=== PATIENT | male | born 1935 | race Caucasian/White ===

== ENCOUNTER 2020-07-30 07:07 | Inpatient (IN) | payer OTHER, MEDICARE ==
--- OUTSIDE RECORDS SUMMARY | 2020-07-30 07:11 | XMS REPORT | Clinical Summary ---
:1935 Author Organization [facility] Address [address] [place] [address] Care Team Providers Name Role Phone Angela Primary Care Provider Unavailable Allergies Active Allergy Reactions Severity Noted Date Comments Codeine Sulfate Nausea And Vomiting 11/03/2016 Rosuvastatin Other (See Comments) 03/04/2016 Muscle pain Medications Medication Sig Dispensed Refills Start Date End Date Status PITAVASTATIN CALCIUM Take 1 tablet by 0 Active (LIVALO ORAL) mouth 3 (three) times a week. multivitamin Take 1 tablet by 0 Active (MULTIVITAMIN) per mouth daily. tablet ascorbic acid (VITAMIN Take 1,000 mg by 0 Active C) 1000 MG tablet mouth daily. saw palmetto 1,000 mg Take by mouth. 0 Active Cap ramipril (ALTACE) 2.5 Take 2 tablets by 0 Active MG capsule mouth. aspirin 81 MG EC tablet Take 81 mg by 0 Active mouth daily. Active Problems Problem Noted Date Medial meniscus tear 04/26/2013 Social History Tobacco Use Types Packs/Day Years Used Date Former Smoker 1 3 Quit: 07/06/18 69 Smokeless Tobacco: Never Used Comments: quit late Alcohol Use Drinks/Week oz/Week Comments Yes wine or liquor-- 5 x week Sex Assigned at Date Recorded Not on file Last Filed Vital Signs Not on file Plan of Treatment Not on file Implants Implanted Type Area Meter Repairer Device Shelf Model / Identifier Expiration Serial / Date Lot Imp Prolaryn Plus 1cc Inj [id number] - [id number] Otorhinolaryngology Bilater JAYCEE 11/16/2017 [id number] / Implanted: Qty: 1 on 11/06/2016 by Lennie barr, Nirmal Valenzuela MD at [facility] al: [employer] / Vocal [id number] Cord Results Not on fileafter 07/30/2019 Insurance Payer Benefit Plan / Subscriber ID Effective Dates Phone Addre ss Type Group MEDICARE MEDICARE A B [id number] 2002-Present Medicare [facility] [id number] 2016-Present Medigap SUPPLEMENT/[employer] Advance Directives For more information, please contact: [phone] Code Status Date Activated Date Inactivated Comments Code ONE 04/26/2013 8:44 AM 04/26/2013 3:37 PM All poss ible means of support including;cardia c massage, mechanical venti lation, and defibrillation w ill be used to support life.
--- OUTSIDE RECORDS SUMMARY | 2020-07-30 07:11 | XMS REPORT | Clinical Summary ---
:1935 Author Organization [facility] Address [address] [place] [address] Care Team Providers Name Role Phone Moy Miller MD Primary Care Provider Allergies Active Allergy Reactions Severity Noted Date Comments Codeine Nausea And Vomiting 05/25/2013 Rosuvastatin Other (See Comments) 03/04/2016 Muscle pain Medications Medication Sig Dispensed Refills Start Date End Date Status dietary supplement Take by mouth. Vitamin D 0 Active capsule Vitamin C Vitamin A Magnesium Selenium Saw [place] Laurie capsule ascorbic acid, vitamin Take 1 tablet by 0 Active C, (VITAMIN C) 500 MG mouth daily. tablet RAMIPRIL ORAL Take 2 tablets by 0 Active mouth. SAW PALMETTO ORAL Take 2 capsules by 0 Active mouth. ADVAIR DISKUS 100-50 USE 1 INHALATION 5 10/28/2017 Active mcg/dose DISKUS PO ONCE D naproxen (NAPROSYN) TK 1 T PO BID 0 10/09/2017 Active 500 MG tablet WITH FOOD ramipril (ALTACE) 10 Take 10 mg by 3 10/12/2017 Active MG capsule mouth nightly. vitamin A-vit C-vit Take by mouth 2 0 Active E-zinc-Cu tablet (two) times a day. acetaminophen Take 1,000 mg by 0 Active (TYLENOL) 500 MG mouth as needed tablet for mild pain. vitamin A 01126 UNIT Take 10,000 Units 0 Active capsule by mouth daily. NUTRITIONAL Take by mouth. Vit 0 Active SUPPLEMENTS ORAL A, Vit B complex, zinc, multi vit, pregagan - to stop 12/18/17 bimatoprost (LUMIGAN) 1 drop 2 (two) 0 Active 0.01 % ophthalmic times a day. drops pitavastatin calcium Take 2 mg by mouth 0 Active (LIVALO) 1 mg tablet nightly. valganciclovir HCl Take 0.5 tablets 0 Active (VALCYTE ORAL) by mouth 2 (two) times a day. UNABLE TO FIND Med Name: camigan 0 Active eye drops testosterone cypionate Inject into the 0 Active (DEPOTESTOTERONE shoulder, thigh, CYPIONATE) 200 mg/mL or buttocks every injection 7 days. loratadine-pseudoepHED Take 1 tablet by 0 Active rine (CLARITIN-D mouth daily. 24-hour) 10-240 mg per 24 hr tablet UNABLE TO FIND Med Name: steroid, 0 Active patient to check and confirm on day of surgery Active Problems Problem Noted Date Spinal stenosis, lumbar region, with neurogenic claudi cation 09/24/2018 Lumbar stenosis with neurogenic claudication 8 Closed fracture of pelvis 12/11/2016 Pain of right hip joint 12/11/2016 Pneumonia of left upper lobe due to infectious organis m 04/19/2016 Encounters Date Type Specialty Care Team Description 04/26/2020 Telephone Sleep Medicine Liza Hanson 04/23/2020 Telephone Sleep Medicine Liza Hanson 04/16/2020 Telephone Sleep Medicine Liza Hanson 04/06/2020 Telephone Sleep Medicine Liza Hanson 03/16/2020 Travel 03/16/2020 Transcribe Orders Sleep Medicine Lizz Ponce Obstr uctive sleep apnea Liza (adult) ([facility]) (Primary Dx) after 07/30/2019 Surgical History Surgery Date Site/Laterality Comments KNEE SURGERY Right ROTATOR CUFF REPAIR Right HIP SURGERY 12/04/2016 - 01/02/2017 SHOULDER SURGERY KNEE ARTHROSCOPY COLON SURGERY 07/06/2004 - had chemo and XR T 07/05/2005 FUSION, SPINE, LUMBAR, 12/25/2017 Spine Lumbar/N/A Procedur e: DECOMPRESSION POSTERIOR APPROACH L3-5, FUSION L4-5; Surgeon: Cole Choi MD; Loc ation: [facility] OR; Serv ice: Orthopedics; La terality: N/A; Medical devices from this surgery are in t he Implants section . LARYNGOSCOPY, SUSPENSION 07/06/2016 - Augment ation laryngoplasty 07/05/2017 COLON SURGERY due to CA - 2004 HIP ARTHROPLASTY Right 2016 LAMINECTOMY, LUMBAR 09/24/2018 Spine Lumbar/N/A Procedure: DECOMPRESSION, L2-L3 AND L5-S1; Surgeon: Cole Choi MD; Location: [facility]; Service: Orthope dics; Laterality: N/A; Medical History Medical History Date Comments Hypertension Acid reflux Arthritis Fractures Hyperlipidemia Hx of cold sores on face, taking med BID Post-nasal drip Fall 12/2016 - fractured h ip - sciatica pain since in right leg, using cane Sleep apnea, obstructive CPAP History of EKG 11/03/2017 had SOB and racing h eart - MD ruled side effect of "too much mucinex" and the result was n ormal Glaucoma Cancer (HCC) 2004 colon - had chemo an d XRT [place] (hard of hearing) no hearing aids Wears glasses Macular degeneration SOB (shortness of breath) on exertion wi th 3 flights of stairs - MD has evaluated Anesthesia NHAP/NFHAP - has sle ep apnea - does not regularly use CP AP, secure caps, patient denies histo ry of chestpain, [place], stroke; Hypercholesteremia Use of cane as ambulatory aid Exercises 3 to 4 times per week lifts we ights 4-5x week x 1 hour, occasional cardio; u nable to climb 2 flights of stairs du e to SOB of breath on exertion a nd hip Asthma Family History Medical History Relation Name Comments Cancer Mother Pollye Relation Name Status Comments Mother Pollye Social History Tobacco Use Types Packs/Day Years Used Date Former Smoker Cigarettes 1 5 Quit: 1979 Smokeless Tobacco: Never Used Alcohol Use Drinks/Week oz/Week Comments Yes 10 Standard drinks or equivalent 10.0 Sex Assigned at Date Recorded Not on file Job Start Date Occupation Industry Not on file Not on file Not on file Last Filed Vital Signs Not on file Plan of Treatment Health Maintenance Due Date Last Done Comments COVID-19 VACCINE (1 of 2) 1951 SHINGLES VACCINES (#1) 1984 65+ PNEUMOCOCCAL VACCINE (1 of 1 - PPSV23) 10/25/1999 INFLUENZA VACCINE 02/04/2020 Implants Implanted Type Area Manager Leadership Development Device Shelf Model / Identifier Expiration Serial / Lot Date Nufix 5.0 Mm Dowel - [id number] - [id number] Spinal Bilateral 07/10/2022 [id number] / Implanted: Qty: 1 on 12/25/2017 by Cole Choi MD at [facility] Implants : Spine [id number] / Lumbar [id number] Nufix 5.0 Mm Dowel - [id number] Spinal Bilateral 07/10/2022 [id number] / Implanted: Qty: 1 on 12/25/2017 by Cole Choi MD at [facility] Implants : Spine / Lumbar [id number] Results Not on fileafter 07/30/2019 Insurance Payer Benefit Plan / Subscriber ID Effective Dates Phone Addre ss Type Group MEDICARE MEDICARE PART A [id number] 2002-Present [facility] [place] [facility] AND B AARP AARP SUPPLEMENT [id number] 2004-[place] [employer] t Advance Directives For more information, please contact: [phone] Type Date Recorded Patient Wood Shop Teacher Explanati on Advance Directives, Living Will 07/22/2018 8:59 AM and Medical Power of Utility Service Worker
--- OUTSIDE RECORDS SUMMARY | 2020-07-30 07:11 | XMS REPORT | Continuity of Care Document ---
:1935 Author Organization [employer] Care Team Providers Name Role Phone [employer] Unavailable Un available Problems Problem Status Onset Classification Date Comments Sourc e Date Reported Avascular Active 09/08/2013 [facility] Aseptic Necrosis Active 09/08/2013 [facility] Femoral Condyle Localized Primary Active 09/08/2013 [facility] The Knee Joint Pain, Active 09/08/2013 [facility] Localized In [facility] Knee Medications Medication Details Route Status Patient Ordering Order Source Instructions Provider Date Multiple (Active) Active [facility] Vitamins [facility] Tablet Vitamin C (Active) Active [facility] CHEW [facility] Livalo TABS (Active) Active [facility] Meloxicam 7.5 (Active) Active [facility] MG [facility] Tablet Allergies, Adverse Reactions, Alerts Substance Category Reaction Severity Reaction Status Date Comments S ource type Reported Codeine drug drug Active [facility] Derivatives allergy allergy Phys icians Immunizations No Data Provided for This Section Results No Data Provided for This Section Pathology Reports No Data Provided for This Section Diagnostic Reports No Data Provided for This Section Consultation Notes No Data Provided for This Section Discharge Summaries No Data Provided for This Section History and Physicals No Data Provided for This Section Vital Signs No Data Provided for This Section Encounters Location Location Encounter Encounter Reason Attending ADM [place] Stat Source Details Type Number For Provider Date Date Visit AUDIT [id number] 06/14 /2012 [facility] AUDIT [id number] 07/20 /2013 [facility] RAMESH, [id number] 07/26 07/20 [place] Provider: LACY Wilder , Status: Pen, Time: 2:00 PM DOMINGA, [id number] 08/30 07/20 [place] Provider: [facility] LIBIA Gonzales, Status: Pen, Time: 8:00 AM AUDIT [id number] 09/08 /2013 [facility] ELIEZER, [id number] 09/13 09/08 [place] Provider: AFBIANA Preston, Status: Pen, Time: 1:00 PM Procedures No Data Provided for This Section Assessment and Plan No Data Provided for This Section Plan of Care Plan of Care Date Source [O] Xray KNEE COMPLETE 4 OR MORE 09/08/2013 [facility] VIEWS 07/20/2013 RoutinePhysical Therapy 09/08/2013 Routine [O] Xray KNEE COMPLETE 4 OR MORE 07/20/2013 [facility] VIEWS 07/20/2013 Routine Social History Social History Date Source Never A Smoker 09/08/2013 [facility] (Active) Family History No Data Provided for This Section Advance Directives Order Name Results Value Date Source Advance Directives Advance Directives No Advance 09/08/2013 [facility] Directives available. Advance Directives Advance Directives No Advance 07/20/2013 [facility] Directives available. Advance Directives Advance Directives No Advance 06/14/2013 [facility] Directives available. Functional Status No Data Provided for This Section
--- OUTSIDE RECORDS SUMMARY | 2020-07-30 07:12 | XMS REPORT | Continuity of Care Document ---
:1935 Author Organization [facility] t Address [address] [place] [address] Care Team Providers Name Role Phone Marcos MILLS Primary Care Physician Unavailable Lizz Ponce Attending Clinician Unavailable OSWALDO Attending Clinician Unavailable Marcos MILLS Attending Clinician Unavailable ADALGISA Attending Clinician Unavailable SHAKILA SUAREZ Attending Clinician Unavailable ADALGISA Admitting Clinician Unavailable Payers Payer Name Policy Policy Number Effective Expiration Source Type Date Date MEDICAREMEDICARE PART [id number] 2002 Jose Carlos Shell AND 00:00:00 Rastafari [id number] 2002[place] AARPAARP [id number] 2004 [place] [id number] 00:00:00 Met rivero 2003-[facility] MEDICARE PART A AND B [id number] 2002 00:00:00 AARP-SECONDARY ONLY [id number] 2004 00:00:00 Problems Condition Condition Condition Status Onset Resolution Last Treating Co mments Source Name Details Category Date Date Treatment Clinician Date Spinal Spinal Disease Active [place] stenosis, stenosis, 3-22 Meth belen lumbar lumbar 00:00: st region, region, 00 with with neurogenic neurogenic claudicati claudicati on on Lumbar Lumbar Disease Active [place] stenosis stenosis 6-22 Method i with with 00:00: st neurogenic neurogenic 00 claudicati claudicati on on Closed Closed Disease Active [place] fracture fracture 12-11 Method i of pelvis of pelvis 00:00: st 00 Pain of Pain of Disease Active [place] right hip right hip 12-11 Meth belen joint joint 00:00: st 00 Pneumonia Pneumonia Disease Active 2015-07 Reece ston of left of left 0-15 Methodi upper lobe upper lobe 00:00: st due to due to 00 infectious infectious organism organism Medial Medial Disease Active 2012-[address] [facility] meniscus [facility]iscus 0[facility] Center Other Other Problem Active Center fatigue fatigue for ENT Unsteadine Unsteadine Problem Active C enter ss on feet ss on feet fo r ENT Dysphonia Dysphonia Problem Active Aric ter for ENT GERD GERD Problem Active Center for ENT Edema of Edema of Problem Active Cente r larynx larynx for ENT Allergic Allergic Problem Active Cente r rhinitis rhinitis for EN T Postnasal Postnasal Problem Active Aric ter drip drip for ENT 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, vertigo, unspecifie unspecifie d ear d ear Obstructiv Obstructiv Problem Active C enter e sleep e sleep for ENT apnea apnea 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 ncy/atroph ncy/atroph y, other y, other Avascular Problem Active 2013-09-08 Me moria Necrosis 23:32:36 l [place] Avascular Necrosis Active [facility] Aseptic Problem Active 2013-09-08 Wilbert oscar Necrosis 23:32:36 l Of The Aseptic [place] 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 [facility] Localized Problem Active 2013-09-08 Me moria Primary 23:32:36 l Osteoarthr Trey n itis Of Localized The Knee Primary Osteoarthr itis Of The Knee Active [facility] Joint Problem Active 2013-09-08 Memor ia Pain, 23:32:36 l Localized Joint Trey n In The Pain, Knee Localized In The Knee Active 4 [facility] Allergies, Adverse Reactions, Alerts Allergy Allergy Status Severity Reaction(s) Onset Inactive Treating Comm ents Source Name Type Date Date Clinician Codeine Propensi Active Nausea And [facility] Sulf[facility] to Vomiting 11-03 [facility] - adverse 00:[facility]: Medical reaction 00 Center s Rosuvast Propensi Active Other (See Muscle [facility] atin ty to Comments) 8 pain [facility] - adverse 00:00: Medical reaction 00 Center s Rosuvast Propensi Active Other (See Muscle [place] atin ty to Comments) 8 pain Methodi adverse 00:00: st reaction 00 s to drug Codeine Propensi Active Nausea And 2012-07 Reece ston ty to Vomiting 1-20 Methodi adverse 00:00: st reaction 00 s to drug Codeine Codeine Active Memoria Derivati Derivati l ves ves [place] Family History Family Member Diagnosis Comments Start Date Stop Date Source Natural [facility] Social History Social Habit Start Date Stop Date Quantity Comments Source History of tobacco Current smoker Jose Carlos gaming Rastafari use Sex Assigned At [facility] ethodi Cigarettes smoked 2018-11-04 2018-11-04 [place] Rastafari current (pack per 00:00:00 00:00:00 day) - Reported Cigarette 2018-11-04 2018-11-04 [facility] ist pack-years 00:00:00 00:00:00 Tobacco use and 2018-11-04 2018-11-04 Never used [facility] ethodist exposure 00:00:00 00:00:00 Alcohol intake 2018-11-04 2018-11-04 Current drinker [place] Rastafari 00:00:00 00:00:00 of alcohol (finding) Social History 2013-09-08 2013-09-08 [facility] 23:32:36 23:32:36 Tobacco Comment 2013-04-26 2013-04-26 quit late [address] Alcohol Comment 2013-04-25 2013-04-[address] [facility] Judy kes - 00:00:00 00:00:00 liquor--5 x week [facility] Center Smoking Status Start Date Stop Date Source Former smoker 2018-11-04 00:00:00 2018-11-04 00:00:00 [place] Rastafari Medications Ordered Filled Start Stop Current Ordering Indication Dosage Frequency Signature Comments Components Source Medication Medication Date Date Medication? Clinician (SIG) Name Name dietary Yes Take by [place] supplement 3-23 mouth. Methodi capsule 09:38: Vitamin st 28 DVitamin CVitamin AMagnesium SeleniumSa w Palmet[place]Gi nger capsule ascorbic 2019-0 Yes 1{tbl} QD Take 1 [place] acid, 3-23 tablet by Methodi vitamin C, 09:38: mouth st (VITAMIN C) 28 daily. 500 MG tablet RAMIPRIL 2019-0 Yes 2{tbl} Take 2 [place] ORAL 3-23 tablets by Methodi 09:38: mouth. st 28 SAW 2019-0 Yes 2{capsu Take 2 Hendrix PALMETTO 3-23 le} capsules Methodi ORAL 09:38: by mouth. st 28 vitamin 2019-0 Yes Q.5D Take by [place] A-vit C-vit 3-23 mouth 2 Metho di E-zinc-Cu 09:38: (two) st tablet 28 times a day. acetaminoph Yes 1000mg Take 1,000 Hendrix en 3-23 mg by Methodi (TYLENOL) 09:38: mouth as st 500 MG 28 needed for tablet mild pain. vitamin A 2018- Yes [id number] [place] [id number] UNIT 3-23 10,000 Methodi capsule 09:38: Units by st 28 mouth daily. NUTRITIONAL 20190 Yes Take by Reece magaña SUPPLEMENTS 3-23 mouth. Vit Me thodi ORAL 09:38: A, Vit B st 28 complex, zinc, multi vit, pregagan - to stop 12/18/17 bimatoprost 2018-0 Yes 1[drp] Q.5D 1 drop 2 Hendrix (LUMIGAN) 3-23 (two) Methodi 0.01 % 09:38: times a st ophthalmic 28 day. drops pitavastati 2018-0 Yes 2mg QD Take 2 mg [place] calcium 3-23 by mouth Method i (LIVALO) 1 09:38: nightly. st mg tablet 28 valganciclo 2019-0 Yes .5{tbl} Q.5D Take 0.5 Hendrix vir HCl 3-23 tablets by Method i (VALCYTE 09:38: mouth 2 st ORAL) 28 (two) times a day. UNABLE TO 2019-0 Yes Med Name: Reece magaña FIND 3-23 camigan Methodi 09:38: eye drops st 28 testosteron 2019-0 Yes Q1W Inject [place] cypionate 3-23 into the Meth belen (DEPOTESTOT 09:38: shoulder, s t ERONE 28 thigh, or CYPIONATE) buttocks 200 mg/mL every 7 injection days. loratadine- Yes 1{tbl} QD Take 1 Ho mekhi pseudoepHED 3-23 tablet by Met jm melton 09:38: mouth st (CLARITIN-D 28 daily. 24-hour) 10-240 mg per 24 hr tablet UNABLE TO 2018- Yes Med Name: Reece magaña FIND 3-23 steroid, Methodi 09:38: patient to st 28 check and confirm on day of surgery Guaifenesin Guaifenesin 2019- No Nirmal 1 tablet [place] 12-15 0707 [place] as needed for E NT 00:00: 00:00 00 :00 ADVAIR Yes USE 1 [place] DISKUS 4-25 INHALATION Methodi 100-50 00:00: PO ONCE D st mcg/dose 00 DISKUS ramipril Yes 10mg QD Take 10 mg Reece magaña (ALTACE) 10 4-09 by mouth Meth belen MG capsule 00:00: nightly. st 00 naproxen Yes TK 1 T PO [place] (NAPROSYN) 4-06 BID WITH Metho di 500 MG 00:00: FOOD st tablet 00 PITAVASTATI 2016-07 Yes 1{tbl} Q.[id number] Take [address] N CALCIUM 1-24 [id number] tablet by [facility] - (LIVALO 10:31: 3W mouth 3 Medical ORAL) 51 (three) Center times a week. multivitami 2016-07 Yes 1{tbl} QD Take [address] n 1-24 tablet by [facility] - (MULTIVITAM 10:31: mouth Medic al IN) per 51 daily. [place] tablet ascorbic 2016-07 Yes 1000mg QD Take 1,[address] acid 1-24 mg by [facility] - (VITAMIN C) 10:31: mouth Medic al 1000 MG 51 daily. [place] tablet saw 2016-07 Yes Take by [facility] palmetto 1-24 mouth. [facility] - 1,000 mg 10:31: Medical Cap 51 [place] ramipril 2016-07 Yes 2{tbl} Take 2 [facility] t (ALTACE) 1-24 tablets by [facility] - 2.5 MG 10:31: mouth. Medical capsule 51 [place] aspirin 81 2016-07 Yes 81mg QD Take [address] MG EC 1-24 by mouth [facility] - tablet 10:31: daily. Medical Center Singulair Singulair Yes Nirmal 1 tablet [place] 18 [facility] for ENT 00:00: 00 Dexilant Dexilant Yes Nirmal 1 capsule [place] 718 [facility] for [facility] 00:00: 00 Rhinocort Rhinocort Yes Nirmal 2 puffs in Center Allergy Allergy 30 [facility] each for E NT 00:00: nostril 00 Multiple Yes (Active) Wilbert oscar Vitamins 3-06 l Oral Tablet 23:32: Trey n 36 Vitamin C Yes (Active) Mem oria CHEW 3-06 l 23:32: [place] 36 [place] TABS Yes (Active) M emoria 3-06 l 23:32: [place] 36 Meloxicam Yes (Active) Mem oria 7.5 MG Oral 3-06 l Tablet 23:32: Tyron 36 Livalo Livalo Yes Nirmal not [facility] defined for ENT Ramipril Ramipril Yes Nirmal not [facility] defined for ENT Meloxicam Meloxicam Yes Nirmal not Cente r [facility] defined for ENT Procedures This patient has no known procedures. Plan of Care Planned Activity Planned Date Details Comments Source Future Scheduled 2020-02-04 INFLUENZA VACCINE [place]ast[place] Test 00:00:00 [code = INFLUENZA VACCINE] Future Scheduled 2013-09-08 Plan of Care [code = Mem orial [place] Test 23:32:36 89327-5] Future Scheduled 2013-07-20 Plan of Care [code = Mem orial [place] Test 15:08:27 96401-3] Future Scheduled 1999-10-25 65+ PNEUMOCOCCAL [place] Rastafari Test 00:00:00 VACCINE (1 of 1 - PPSV23) [code = 65+ PNEUMOCOCCAL VACCINE (1 of 1 - PPSV23)] Future Scheduled 1984 SHINGLES VACCINES (#1) H josh Rastafari Test 00:00:00 [code = SHINGLES VACCINES (#1)] Future Scheduled 1950 COVID-19 VACCINE (1 of H josh Rastafari Test 00:00:00 2) [code = COVID-19 VACCINE (1 of 2)] Encounters Start End Encounter Admission Attending Care Care Encounter Source Date/Time Date/Time Type Type Clinicians Facility Department ID 2020-03-06 2020-03-06 Outpatient WALTER MAURO ZONIA BRAR [id number] 10:52:58 10:52:58 Ravindra munroe 2020-03-01 2020-03-01 Outpatient CADE PRICE ZONIA BRAR [id number] 00:00:00 00:00:00 Ravindra munroe 2018-09-06 2018-09-06 Outpatient [facility] [place] [id number] Center 11:46:00 11:46:00 [facility] for [facility] T for E[facility] 2017-12-15 2017-12-15 Outpatient The [facility] [id number] Center 09:50:00 09:50:00 [facility] for [facility] for EN T for ENT P [facility] 2017-12-14 2017-12-14 Outpatient The [facility] [id number] [place] 12:09:00 12:09:00 [facility] for [facility] T for [facility] 2017-01-21 2017-04-20 Outpatient Walt [place]IA[place] [id number] [facility] 13:00:00 23:59:00 SHAKILA PT Medica l [place] 2013-09-08 2013-09-08 Outpatient MHIE MHIE [id number] 17:32:37 17:32:36 2013-07-20 2013-07-20 Outpatient MHIE MHIE [id number] 09:08:28 09:08:27 2013-06-14 2013-06-14 Outpatient MHIE MHIE [id number] 12:19:01 12:19:01 Results Test Description Test Time Test Comments Results Result [facility] e Comments [place], [place] MARISELA, 2017-05-27 Reason for FINAL REPORT PATIENT LUMBO-SACRAL WITH 16:22:00 Exam:->Lumbar ID: [id number] IMAGING stenosis with Procedure: Lumbar neurogenic epidural steroid claudicarion injection Modality: L4-L5 Fluoroscopy. Sedation: No conscious sedation Anesthesia: 1% lidocaine locally. 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 Discussion: Details of the procedure, risks (including but not limited to infection, bleeding, nerve damage, thecal sac puncture), benefits, and questions were discussed, and informed consent was obtained from the patient as documented on the chart. The patient was sterilely prepped and draped; 1% lidocaine was used for local anesthesia. Using fluoroscopic guidance, a 20-gauge Cuellar needle was introduced into the epidural space at the L4-5 level. Proper epidural positioning was confirmed with 1 cc Isovue 200 M contrast administration. A mixture of 12 mg Celestone and 3 cc of 0.25% Sensorcaine was then infused without difficulty. There were no procedure related complications. Fluoroscopy time: 0.6 minutes, 4 fluoroscopic images Disposition: The patient was discharged home in stable condition after the usual time course of observation. Impression: Successful fluoroscopy guided lumbar epidural steroid injection. Signed: Abran Yooort Verified Date/Time: 05/27/2017 16:22:42 Reading Location: [address] Neuro Reading Room , SPINAL MARISELA, 2017-05-22 Reason for FINAL REPORT PATIENT LUMBO-SACRAL WITH 15:44:00 Exam:->lumbar ID: [id number] IMAGING stenosis with Referring Physician: britta WATSON MD, claudication l5-s1 M.DCoby Procedure: Lumbar Epidural Steroid Injection Radiologist: Evy Fang M.D. CLINICAL HISTORY: lumbar stenosis with neurogenic claudication L5-S1 Episode of Care: Initial DESCRIPTION OF PROCEDURE: After obtaining informed consent, the patient was prepped and draped on the fluoroscopy table following the usual sterile fashion for lumbar MARISELA. 1% lidocaine was administered for local anesthesia. Using fluoroscopic guidance, a 22-gauge spinal needle advanced into the lumbar epidural space using an interlaminar approach at L5-S1 on the right. Approximately 0.5 cc of Isovue 200 was hand injected to confirm proper needle tip location. A mixture of 2 cc Celestone and 2 cc Sensorcaine was hand injected without difficulty. There were no periprocedural complications. Images: 2. Fluoroscopy time: 0.1 minutes. IMPRESSION: Technically successful lumbar epidural steroid injection. The patient noted that the injection replicated his usual pain symptomatology. Therefore, it is suspected that this injection will benefit him long-term. Signed: Evy Fang MDRkristaort Verified Date/Time: 05/22/2017 15:44:40 Reading Location: [address] Neuro Reading Room , [place], 2017-05-21 FINAL REPORT PATIENT CERVICAL, WITHOUT 14:26:00 ID: [id number] MR CONTRAST cervical spine without contrast INDICATION: Cervical spinal stenosis. TECHNIQUE: MRI of the cervical spine utilizing the following sequences: Sagittal T1, T2, STIR; axial T1 and T2 COMPARISON: None available. FINDINGS:There is right convex cervical spine curvature with mild anterolisthesis at C5-C6 and C7-T1. There are degenerative endplate changes, most notable at C5-6. There is partial osseous fusion across the C4-5 disc. There is C1-2 arthropathy with dense remodeling. There is no evident abnormal cord signal. C2-3: Left greater than right facet arthropathy and posterior ligamentous buckling with mild to moderate left and minimal right foraminal stenosis. No significant canal stenosis. C3-4: Disc bulge extending into the foraminal regions, endplate and uncovertebral osteophytes, facet arthropathy, and posterior ligamentous buckling. Mild to moderate canal stenosis with dorsal cord contouring. Severe left greater than right foraminal stenosis. C4-5: Partial osseous fusion across the disc within cortical osteophytes and left greater than right facet arthropathy. Moderate left and mild right foraminal stenosis. No significant canal stenosis. C5-6: Disc degeneration and bulge extending into the foraminal regions, endplate and uncovertebral osteophytes, facet arthropathy, and posterior ligamentous buckling. Mild to moderate canal stenosis with cord contouring. Severe bilateral foraminal stenosis. C6-7: Disc bulge extending into the foraminal regions, endplate and uncovertebral osteophytes, and left greater than right facet arthropathy. Moderate left and minimal right foraminal stenosis. No significant canal stenosis. C7-T1: Disc bulge extending into the foraminal regions, broad-based central disc protrusion, uncovertebral osteophytes, and facet arthropathy. Moderate bilateral foraminal stenosis. No significant canal stenosis. T1-2: disc osteophyte complex and facet arthropathy with mild to moderate foraminal stenoses and minimal canal stenosis. There is paraspinal muscle deconditioning. IMPRESSION: 1. Multilevel degenerative changes with resultant mild to moderate C3-4 and C5-6 spinal canal stenosis. 2. Severe foraminal stenoses at C3-4 and C5-6, with other lesser foraminal stenoses as detailed above. Advise correlation with radiculopathic symptoms. 3. No specific evidence of abnormal cord signal. Signed: Abran Yoo MDReport Verified Date/Time: 05/21/2017 14:26:20 Reading Location: [facility] Radiology Reading Room GLOBIN 2016-11-03 17:38:00 Test Item Value Reference Range Interpretation Comme nts HEMOGLOBIN (BEAKER) (test code = 410) 14.7 GM/DL 13.0-16.8 BASIC METABOLIC [id number] 17:29:00 Test Item Value Reference Range Interpretation Comments SODIUM (BEAKER) 137 meq/L 136-145 (test code = 381) POTASSIUM (BEAKER) 4.3 meq/L 3.5-5.1 (test code = 379) CHLORIDE (BEAKER) 102 meq/L 98-107 (test code = 382) CO2 (BEAKER) (test 28 meq/L 22-29 code = 355) BLOOD UREA NITROGEN 20 mg/dL 7-21 (BEAKER) (test code = 354) CREATININE (BEAKER) 1.05 mg/dL 0.57-1.25 (test code = 358) GLUCOSE RANDOM 90 mg/dL 70-105 (BEAKER) (test code = 652) CALCIUM (BEAKER) 9.7 mg/dL 8.4-10.2 (test code = 697) EGFR (BEAKER) (test 68 mL/min/1.73 ESTIMA SIMA GFR IS code = 1092) sq m NOT ACCURATE CREATININE CLEARANCE IN PREDICTING GLOMERULAR FILTRATION RATE . ESTIMATED GFR I S NOT APPLICABLE FOR DIALYSIS PATIEN TS.
[2020-07-30 07:48] LABS: Absolute Lymphocytes (CBC) 0.9 K/uL (0.7-4.9); Basophils % 0.2 % (0-1.3); Hematocrit 50.4 % (39.6-49.0); Lymphocytes % 10.9 % (15.3-44.8); MPV 8.8 fL (7.6-11.3); RBC Red Blood Cell Count 5.38 M/uL (4.33-5.43)
[2020-07-30 08:02] LABS: Albumin 3.8 g/dL (3.4-5.0); Bilirubin Direct 0.2 mg/dL (0-0.2); Bilirubin Total 0.8 mg/dL (0.2-1.0); Potassium 3.8 mmol/L (3.5-5.1)
[2020-07-30] MEDS ORDERED: NA CHLORIDE 0.9% 500 ML ONE (08:28)
[2020-07-30] MEDS ORDERED: MEPERIDINE HCL 25 MG/ML SYR ONE (08:28)
[2020-07-30] MEDS ORDERED: ONDANSETRON 4 MG/2 ML VIAL ONE (08:28)
--- NOTE | 2020-07-30 08:39 | RAD REPORT ---
EXAM DESCRIPTION: CTAbdomen Pelvis W Contrast - 07/30/2020 8:30 am CLINICAL HISTORY: Abdominal pain. lower abd pain, vomiting COMPARISON: No comparisons TECHNIQUE: Biphasic CT imaging of the abdomen and pelvis was performed with 100 ml non-ionic IV cont rast. All CT scans are performed using dose optimization technique as appropriate and may include automated exposure control or mA/KV adjustment according to patient size. FINDINGS: The lung bases are clear. Small hiatal hernia. Mild fatty liver. The spleen, adrenal glands and kidneys are within normal limit s. Mild pancreatic atrophy. Multiple dilated small bowel loops are seen in the left mid and lower abdomen compatible with a moder ate mechanical small-bowel obstruction. Anterior hernia mesh is present. The appendix is normal. No evidence of significant lymphadenopathy. 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 Moderate multilevel lumbar degenerative spondylosis. IMPRESSION: Moderate mechanical small-bowel obstruction is present.
--- NOTE | 2020-07-30 09:53 | ER ---
Nurse's Notes [facility] Khai Name: Reed Chavez Age: 84 yrs Sex: Male : 1935 Arrival Date: 07/30/2020 Time: 07:09 Bed 5 Private MD: Diagnosis: Small bowel obstruction Presentation: 07/30 07:15 Chief complaint: Lower abdominal pain that radiates to back and N/V since last night. hb Coronavirus screen: Client presents with at least one sign or symptom that may indicate coronavirus-19. Standard/surgical mask placed on the client. Ebola Screen: No symptoms or risks identified at this time. Initial Sepsis Screen: Does the patient meet any 2 criteria? No. Patient's initial sepsis screen is negative. Does the patient have a suspected source of infection? No. Patient's initial sepsis screen is negative. Risk Assessment: Do you want to hurt yourself or someone else? Patient reports no desire to harm self or others. Onset of symptoms was July 29, 2020. 07:15 Method Of Arrival: Ambulatory hb 07:15 Acuity: MARISELA 3 hb Historical: - Allergies: 07:29 No Known Allergies; hb - Home Meds: 07:29 Ramipril Oral [Active]; unknown statin [Active]; hb - PMHx: 07:29 Hypertension; Colon CA; hb - PSHx: 07:29 Colon resection; hb - Immunization history:: Adult Immunizations up to date. - Social history:: Smoking status: Patient denies any tobacco usage or history of. - Family history:: not pertinent. - Hospitalizations: : No recent hospitalization is reported. Screenin:30 Abuse screen: Denies threats or abuse. Denies injuries from another. Nutritional jl7 screening: No deficits noted. Tuberculosis screening: No symptoms or risk factors identified. Fall Risk IV access (20 points). Total De La Cruz Fall Scale indicates No Risk (0-24 pts). Assessment: 07:30 General: Appears in no apparent distress. uncomfortable, Behavior is calm, cooperative, jl7 appropriate for age. Pain: Complains of pain in lumbar area, right lower quadrant and left lower quadrant Pain currently is 8 out of 10 on a pain scale. Neuro: Level of Consciousness is awake, alert, obeys commands, Oriented to person, place, time, situation. Cardiovascular: Patient's skin is warm and dry. Respiratory: Airway is patent Respiratory effort is even, unlabored, Respiratory pattern is regular, symmetrical. GI: Abdomen is non-distended, Abd is soft Abdomen is tender to palpation in right lower quadrant and left lower quadrant. : No signs and/or symptoms were reported regarding the genitourinary system. Derm: Skin is pink, warm \T\ dry. 09:00 Reassessment: Patient appears in no apparent distress at this time. Patient and/or [facility] family updated on plan of care and expected duration. Pain level reassessed. Patient is alert, oriented x 3, equal unlabored respirations, skin warm/dry/pink. Patient states symptoms have improved. 10:00 Reassessment: Patient appears in no apparent distress at this time. No changes from [facility] previously documented assessment. Patient and/or family updated on plan of care and expected duration. Pain level reassessed. Patient is alert, oriented x 3, equal unlabored respirations, skin warm/dry/pink. 12:00 Reassessment: Patient appears in no apparent distress at this time. No changes from [facility] previously documented assessment. Patient and/or family updated on plan of care and expected duration. Pain level reassessed. Patient is alert, oriented x 3, equal unlabored respirations, skin warm/dry/pink. 13:00 Reassessment: Patient appears in no apparent distress at this time. No changes from [facility] previously documented assessment. Patient and/or family updated on plan of care and expected duration. Pain level reassessed. Patient is alert, oriented x 3, equal unlabored respirations, skin warm/dry/pink. Vital Signs: 07:15 BP 154 / 71; Pulse 78; Resp 16; Temp 97.2(TE); Pulse Ox 99% on R/A; Weight 74.84 kg; hb Height 5 ft. 9 in. (175.26 cm); Pain 8/10; 09:16 BP 138 / 91; Pulse 79; Resp 15 S; Pulse Ox 99% on R/A; Pain 5/10; jl7 11:41 BP 111 / 71; Pulse 71; Resp 12; Pulse Ox 93% ; mh5 12:39 BP 116 / 61; Pulse 81; Resp 12; Pulse Ox 99% ; sv 13:27 BP 130 / 70; Pulse 80; Resp 12; Pulse Ox 95% ; sv 07:15 Body Mass Index 24.37 (74.84 kg, 175.26 cm) hb ED Course: 07:09 Patient arrived in ED. am2 07:15 Kellen Shine, TERRANCE is Primary Nurse. jl7 07:17 Sean Seals MD is Attending Physician. rn 07:28 Triage completed. hb 07:29 Arm band placed on. hb 07:40 Initial lab(s) drawn, by me, sent to lab. Inserted saline lock: 20 gauge in right jl7 forearm, using aseptic technique. Blood collected. 08:26 Basic Metabolic Panel Sent. sv 08:26 CBC with Diff Sent. sv 08:26 Hepatic Function Sent. sv 08:26 Lipase Sent. sv 08:30 Patient has correct armband on for positive identification. Placed in gown. Bed in low jl7 position. Call light in reach. Side rails up X 1. laboratory monitor on. Pulse ox on. NIBP on. Warm blanket given. 09:51 Dewey Parikh MD is Hospitalizing Provider. rn 10:30 NGT: inserted 16 Fr. via left nare. verified placement of air over stomach, verified jl7 return of gastric contents, to intermittent suction. Returned gastric contents. Returned bile. Amount of gastric contents removed by suction 300ml. Patient tolerated well. 14:01 No provider procedures requiring assistance completed. Patient admitted, IV remains in jl7 place. intact, No redness/swelling at site. Administered Medications: 08:12 Drug: NS 0.9% 500 ml Route: IV; Rate: bolus; Site: right forearm; jl7 08:50 Follow up: Response: No adverse reaction; IV Status: Completed infusion; IV Intake: jl7 500ml 08:13 Drug: Zofran (Ondansetron) 4 mg Route: IVP; Site: right forearm; jl7 08:30 Follow up: Response: No adverse reaction jl7 08:15 Drug: Demerol 25 mg Route: IVP; Site: right forearm; jl7 08:30 Follow up: Response: No adverse reaction; Pain is decreased jl7 11:16 Drug: Demerol 25 mg Route: IVP; Site: right forearm; jl7 11:30 Follow up: Response: No adverse reaction; Pain is decreased jl7 11:20 Drug: Zosyn 3.375 grams Route: IVPB; Infused Over: 60 mins; Site: right forearm; jl7 12:20 Follow up: Response: No adverse reaction; IV Status: Completed infusion jl7 Intake: 08:50 IV: 500ml; Total: 500ml. jl7 Output: 15:06 Gastric: 650ml (NGT); Total: 650ml. jl7 Outcome: 09:51 Decision to Hospitalize by Provider. rn 15:04 Admitted to Med/surg accompanied by tech, via stretcher, room 212, with chart, Report jl7 called to TERRANCE Haque 15:04 Condition: stable 15:04 Discharge instructions given to patient, Instructed on the need for admit, Demonstrated understanding of instructions. 15:07 Patient left the ED. jl7 Signatures: Eulalia Leos, RN Sean Nunez MD MD rn Baxter, Heather, RN RN hb Martinez, Maria [facility] Kellen Shine RN RN jl7 Marisol Burns 2
--- NOTE | 2020-07-30 09:53 | EDPHYS ---
Physician Documentation [facility] Khai Name: Reed Chavez Age: 84 yrs Sex: Male : 1935 Arrival Date: 07/30/2020 Time: 07:09 Bed 5 Private MD: ED Physician Sean Seals HPI: 07/30 07:50 This 84 yrs old Male presents to ER via Ambulatory with complaints of rn Abdominal Pain, Back Pain. 07:51 The patient presents with abdominal pain in the lower abdomen. Onset: The rn symptoms/episode began/occurred last night. The symptoms radiate to back. Associated signs and symptoms: Pertinent positives: nausea and vomiting, Pertinent negatives: blood in stools, dysuria, fever. The symptoms are described as crampy, intermittent. Modifying factors: The symptoms are alleviated by nothing, the symptoms are aggravated by touching the area. Severity of pain: At its worst the pain was mild in the emergency department the pain is unchanged. The patient has experienced similar episodes in the past. The patient has not recently seen a physician. Reports lower abd pain, bilateral, radiates to back, no fever, + vomiting x 2, no blood in emesis or stool, has happened before, attributes it to lactose intolerance, states ate burmese food last night. Has had partial colon resection 2/2 cancer, wants to make sure everything looks ok.. Historical: - Allergies: 07:29 No Known Allergies; hb - Home Meds: 07:29 Ramipril Oral [Active]; unknown statin [Active]; hb - PMHx: 07:29 Hypertension; Colon CA; hb - PSHx: 07:29 Colon resection; hb - Immunization history:: Adult Immunizations up to date. - Social history:: Smoking status: Patient denies any tobacco usage or history of. - Family history:: not pertinent. - Hospitalizations: : No recent hospitalization is reported. ROS: 07:51 Constitutional: Negative for fever, chills, and weight loss, Eyes: Negative for injury, rn pain, redness, and discharge, Neck: Negative for injury, pain, and swelling, Cardiovascular: Negative for chest pain, palpitations, and edema, Respiratory: Negative for shortness of breath, cough, wheezing, and pleuritic chest pain, Abdomen/GI: + lower abd pain, + vomiting Back: Negative for injury MS/Extremity: Negative for injury and deformity, Skin: Negative for injury, rash, and discoloration, Neuro: Negative for headache, weakness, numbness, tingling, and seizure. Exam: 07:51 Constitutional: This is a well developed, well nourished patient who is awake, alert, rn and in no acute distress. Head/Face: Normocephalic, atraumatic. Cardiovascular: Regular rate and rhythm. No pulse deficits. Respiratory: No increased work of breathing, no retractions or nasal flaring. Abdomen/GI: soft, + mild bilateral lower quadrant tenderness, no masses, no peritoneal signs. Skin: Warm, dry MS/ Extremity: Pulses equal, no cyanosis. Neurovascular intact. Full, normal range of motion. Equal circumference. Neuro: Awake and alert, GCS 15, oriented to person, place, time, and situation. Cranial nerves II-XII grossly intact. Motor strength 5/5 in all extremities. Sensory grossly intact. Cerebellar exam normal. Vital Signs: 07:15 BP 154 / 71; Pulse 78; Resp 16; Temp 97.2(TE); Pulse Ox 99% on R/A; Weight 74.84 kg; hb Height 5 ft. 9 in. (175.26 cm); Pain 8/10; 09:16 BP 138 / 91; Pulse 79; Resp 15 S; Pulse Ox 99% on R/A; Pain 5/10; jl7 11:41 BP 111 / 71; Pulse 71; Resp 12; Pulse Ox 93% ; mh5 12:39 BP 116 / 61; Pulse 81; Resp 12; Pulse Ox 99% ; sv 13:27 BP 130 / 70; Pulse 80; Resp 12; Pulse Ox 95% ; sv 07:15 Body Mass Index 24.37 (74.84 kg, 175.26 cm) hb MDM: 07:17 Patient medically screened. rn 09:50 Differential diagnosis: bowel obstruction, diverticulitis, non-specific abd pain. Data rn reviewed: vital signs, nurses notes, lab test result(s), radiologic studies, CT scan, and as a result, I will admit patient. Counseling: I had a detailed discussion with the patient and/or guardian regarding: the historical points, exam findings, and any diagnostic results supporting the discharge/admit diagnosis, lab results, radiology results, the need for further work-up and treatment in the hospital. Response to treatment: the patient's symptoms have mildly improved after treatment, and as a result, I will admit patient. Admission orders: after a detailed discussion of the patient's condition and case, the admit orders are written by me. ED course: Pt with mechanical SBO, called Dr. Pal, sounds like in OR, message left with person who answered phone, will pass on message.. 07/30 07:25 Order name: Basic Metabolic Panel rn 07/30 07:25 Order name: CBC with Diff rn 07/30 07:25 Order name: Hepatic Function rn 07/30 07:25 Order name: Lipase rn 07/30 07:25 Order name: Urine Microscopic Only rn 07/30 08:02 Order name: Basic Metabolic Panel; Complete Time: 08:10 EDMS 07/30 08:02 Order name: Liver (Hepatic) Function; Complete Time: 08:10 EDMS 07/30 08:02 Order name: Lipase; Complete Time: 08:10 EDMS 07/30 08:04 Order name: CBC with Automated Diff; Complete Time: 08:10 EDMS 07/30 11:33 Order name: Urine Microscopic Only; Complete Time: 14:58 EDMS 07/30 11:37 Order name: COVID-19 jl7 07/30 11:38 Order name: Urine Dipstick--Ancillary (enter results) bd 07/30 12:34 Order name: Urine Dipstick-Ancillary; Complete Time: 14:58 EDMS 07/30 12:43 Order name: SARS-COV-2 RT PCR; Complete Time: 14:58 EDMS 07/30 07:25 Order name: IV Saline Lock; Complete Time: 07:44 rn 07/30 07:25 Order name: Labs collected and sent; Complete Time: 07:44 rn 07/30 07:25 Order name: CT Abd/Pelvis - IV Contrast Only rn 07/30 08:40 Order name: CT; Complete Time: 09:40 EDMS 07/30 09:53 Order name: EKG - Nurse/Tech; Complete Time: 10:52 rn 07/30 09:53 Order name: EKG; Complete Time: 09:53 rn 07/30 09:53 Order name: NG Tube; Complete Time: 10:51 rn 07/30 09:53 Order name: NPO; Complete Time: 09:54 rn Administered Medications: 08:12 Drug: NS 0.9% 500 ml Route: IV; Rate: bolus; Site: right forearm; jl7 08:50 Follow up: Response: No adverse reaction; IV Status: Completed infusion; IV Intake: jl7 500ml 08:13 Drug: Zofran (Ondansetron) 4 mg Route: IVP; Site: right forearm; jl7 08:30 Follow up: Response: No adverse reaction jl7 08:15 Drug: Demerol 25 mg Route: IVP; Site: right forearm; jl7 08:30 Follow up: Response: No adverse reaction; Pain is decreased jl7 11:16 Drug: Demerol 25 mg Route: IVP; Site: right forearm; jl7 11:30 Follow up: Response: No adverse reaction; Pain is decreased jl7 11:20 Drug: Zosyn 3.375 grams Route: IVPB; Infused Over: 60 mins; Site: right forearm; jl7 12:20 Follow up: Response: No adverse reaction; IV Status: Completed infusion jl7 Disposition: 07/30/20 09:51 Hospitalization ordered by Dewey Parikh for Inpatient Admission. Preliminary diagnosis is Small bowel obstruction. - Bed requested for Telemetry/MedSurg (Inpatient). - Status is Inpatient Admission. jl7 - Condition is Stable. - Problem is new. - Symptoms have improved. Signatures: Dispatcher [employer] EDMS Sean Seals MD MD rn Baxter, Heather RN Kellen Stuart RN RN 7 Waldemar Gardner RN RN ja1 Corrections: (The following items were deleted from the chart) 13:04 09:51 Hospitalization Ordered by Dewey Parikh MD for Inpatient Admission. Preliminary ja1 diagnosis is Small bowel obstruction. Bed requested for Telemetry/MedSurg (Inpatient). Status is Inpatient Admission. Condition is Stable. Problem is new. Symptoms have improved. rn 15:07 13:04 07/30/2020 09:51 Hospitalization Ordered by Dewey Parikh MD for Inpatient jl7 Admission. Preliminary diagnosis is Small bowel obstruction. Bed requested for Telemetry/MedSurg (Inpatient). Status is Inpatient Admission. Condition is Stable. Problem is new. Symptoms have improved. ja1
[2020-07-30] MEDS ORDERED: PIPER/TAZO/NS 3.375gm 3.375 GM/100 ML BAG ONE (11:27)
[2020-07-30] MEDS ORDERED: MEPERIDINE HCL 50 MG/ML ONE (11:27)
[2020-07-30 11:33] LABS: Urine Bacteria <20 /HPF (NONE SEEN); Urine RBC <5 /HPF (NONE SEEN)
[2020-07-30 12:34] LABS: Urine Blood TRACE (NEG); Urine Glucose NEGATIVE (NEG); Urine Protein 1+ (NEG); Urine Specific Gravity 1.025 (1.005-1.030)
[2020-07-30] MEDS ORDERED: ACETAMINOPHEN 500 MG TAB PO PRN (14:59)
[2020-07-30] MEDS ORDERED: ACETAMINOPHEN 650MG/RECT SUPP PR PRN (14:59)
[2020-07-30 16:14] VITALS: BMI 24.3
[2020-07-30] MEDS: CEFOXITIN/SWI 1gm 1 GM/10 ML SYR IVP SCH ×2 (17:21→23:28)
[2020-07-30] MEDS: Ringers Lactate 1,000 ML IV SCH (17:21)
[2020-07-30] MEDS: ENOXAPARIN 30 MG/0.3 ML SQ SCH (17:21)
[2020-07-30] MEDS ORDERED: CEFOXITIN SODIUM 1 GM/VIAL IVPB SCH (18:00)
[2020-07-30] MEDS ORDERED: INFLUENZA VACCINE (for 3y+) 0.5 ML DOSE IMVAC ONE (18:00)
[2020-07-30] MEDS: HYDROMORPHONE HCL 0.5 MG/0.5 ML INJ IV PRN (22:44)
[2020-07-30] MEDS: ONDANSETRON 4 MG/2 ML VIAL IV PRN (22:51)
[2020-07-31] MEDS: Ringers Lactate 1,000 ML IV SCH ×3 (00:59→14:48)
[2020-07-31 04:34] LABS: Absolute Lymphocytes (CBC) 1.1 K/uL (0.7-4.9); Basophils % 0.4 % (0-1.3); Hematocrit 46.7 % (39.6-49.0); MPV 8.7 fL (7.6-11.3); RBC Red Blood Cell Count 4.94 M/uL (4.33-5.43)
[2020-07-31 04:42] LABS: Protime INR 1.02
[2020-07-31 04:55] LABS: Albumin 3.4 g/dL (3.4-5.0); Bilirubin Total 0.9 mg/dL (0.2-1.0); Magnesium 2.5 mg/dL (1.8-2.4); Phosphorus 4.2 mg/dL (2.5-4.9); Potassium 3.7 mmol/L (3.5-5.1); Protein, Total 6.9 g/dL (6.4-8.2)
[2020-07-31 05:11] LABS: Blood Morphology Comment NOT SEEN (NOT SEEN); Platelet Estimate ADEQ
[2020-07-31] MEDS: CEFOXITIN/SWI 1gm 1 GM/10 ML SYR IVP SCH ×3 (05:59→17:56)
[2020-07-31] MEDS ORDERED: KCL 20 MEQ/100 mL IVPB 20 MEQ/100 ML BAG IV SCH (07:30)
[2020-07-31] MEDS: ENOXAPARIN 30 MG/0.3 ML SQ SCH (08:10)
--- NOTE | 2020-07-31 10:05 | P.HP ---
Certification for Inpatient Patient admitted to: Inpatient With expected LOS: >2 Midnights Patient will require the following post-hospital care: None Practitioner: I am a practitioner with admitting privileges, knowledge of patient current condition, hospital course, and medical plan of care. Services: Services provided to patient in accordance with Admission requirements found in Title 42 Section 412.3 of the Code of Federal Regulations Patient History Date of Service: 07/30/20 Reason for admission: Small-bowel obstruction History of Present Illness: Patient is a 84-year-old gentleman with a history of colon cancer status post partial colon resection who came into the hospital with abdominal pain. He had intractable nausea and vomiting on 2 separate occasions and his symptoms gradually worsened. He was noting some abdominal distension so he came to the emergency room to see if anything it happened to is prior colon resection. In the ER they did a CT scan which revealed a small-bowel obstruction. Patient was admitted to the hospital for further evaluation. Patient will get General surgery consultation. Will keep NG tube to suction. IV antibiotics and IV hydration. Allergies No Known Allergies Allergy (Unverified 07/30/20 14:34) Home Medications: Bimatoprost [Lumigan] 1 drop EACH EYE BEDTIME 07/30/20 Brimonidine Tartrate/Timolol [Combigan 0.2%-0.5% Eye Drops] 1 drop RIGHT EYE BID 07/30/20 Pravastatin Sodium 40 mg PO BEDTIME 07/30/20 Ramipril [Altace] 20 mg PO BEDTIME 07/30/20 - Past Medical/Surgical History Has patient received pneumonia vaccine in the past: Yes Diabetic: No -: Hypertension -: Hyperlipidemia -: Colon Cancer -: Glaucoma -: Macular Degeneration -: Colon Resection -: Bilateral Rotator Cuff Repair -: Spinal Surgery -: Right Hip Replacement - Family History Mother Medical History: Cancer Notes: Colon cancer - - Social History Smoking Status: Never smoker Alcohol use: Yes CD- Drugs: No Caffeine use: Yes Place of Residence: Home Review of Systems 10-point ROS is otherwise unremarkable Physical Examination - Vital Signs Temperature: 97.6 F Blood Pressure: 133/58 Pulse: 75 Respirations: 18 Pulse Ox (%): 95 - Physical Exam General: Alert, In no apparent distress, Oriented x3 HEENT: Atraumatic, PERRLA, Mucous membr. moist/pink, EOMI, Sclerae nonicteric Neck: Supple, 2+ carotid pulse no bruit, No LAD, Without JVD or thyroid abnormality Respiratory: Clear to auscultation bilaterally, Normal air movement Cardiovascular: Regular rate/rhythm, Normal S1 S2, No murmurs Gastrointestinal: No guarding, Absent bowel sounds, Distended, Tenderness, Rebound Musculoskeletal: No clubbing, No swelling, No tenderness Integumentary: No rashes Neurological: Normal gait, Normal speech, Normal tone, Sensation intact, Cranial nerves 3-12 intact, Normal affect, Abnormal strength Lymphatics: No axilla or inguinal lymphadenopathy Assessment & Plan - Problems (Diagnosis) (1) Small bowel obstruction Current Visit: Yes Status: Acute (2) History of colon cancer Current Visit: Yes Status: Acute (3) History of partial colectomy Current Visit: Yes Status: Acute - Plan 1. Continue with IV hydration 2. Continue with IV antibiotics 3. Continue with pain control 4. NPO and NG tube to low intermittent wall suctioning 5. General surgery consultation; 6. Serial H&H, and we will monitor CBC, BMP, LFTs and lipase along with electrolytes. 7. GI and DVT prophylaxis Discharge Plan: Home Plan to discharge in: Greater than 2 days - Advance Directives Does patient have a Living Will: No Does patient have a Durable POA for Healthcare: No - Code Status/Comfort Care Code Status Assessed: Yes Code Status: Full Code Critical Care: No Time Spent Managing PTS Care (In Minutes): 45
[2020-07-31] MEDS: ONDANSETRON 4 MG/2 ML VIAL IV PRN ×3 (10:27→23:00)
--- NOTE | 2020-07-31 11:24 | P.PN ---
Subjective Date of Service: 07/31/20 Chief Complaint: Small-bowel obstruction Subjective: Improving (Patient now has no pain, only mild tenderness at times, passing gas, no BM) Physical Examination - Vital Signs Temperature: 97.6 F Blood Pressure: 133/58 Pulse: 75 Respirations: 18 Pulse Ox (%): 95 - Physical Exam General: Alert, In no apparent distress, Cooperative Neck: Supple Gastrointestinal: Soft and benign, Non-distended, No ascites, No tenderness, No masses, No rebound, No guarding Assessment And Plan - Current Problems (Diagnosis) (1) Small bowel obstruction Current Visit: Yes Status: Acute Plan: - 6 hour clamp trial for NG tube, if no pain, nausea, distention, may DC NGTube and start clears - serial exams - continue medical management
--- NOTE | 2020-07-31 11:51 | CON ---
Date of Consultation: 07/30/2020 Brief History Of Present Illness: The patient is an 84-year-old gentleman with a history o f colon cancer status post partial colon resection 15 years ago, who came to the hospital with a recu rrent onset of abdominal pain. He states the pain began in his abdomen and rotated through to his ba ck. He has had several episodes before in the past, which were defined a small bowel obstruction. [place] keller has been hospitalized for this before, but never had [facility]. His last episode was several years ago, but he has had at least 3 episodes of this in his remote history. He gets colonoscopies every year. His last one was essentially normal by his report. He had been noting abdominal distention in addition to some nausea and only had emesis upon his presenta tion to the emergency room. He came to the emergency room with the above-stated complaints. He had an NG-tube placed at that time and had significant symptomatic improvement during that time. His las t bowel was yesterday and continues to pass gas since his admission. Past Medical History: Significant for hypertension, hyperlipidemia, colon cancer, glaucoma, macular degeneration. Past Surgical History: Includes bilateral rotator cuff repair, colon resection, uncertain location s kaya surgery, right hip replacement. Home Medications: Include Lumigan, Combigan, pravastatin, Altace. Social History: He denies smoking. Drinks alcohol recreationally. Denies recreational drug use. Review of Systems: Ten-point review of systems other than in HPI, denies. Physical Examination: Vital Signs: At the time of my examination; his temperature was 97.6, blood pressure 133/58, pulse 7 5, respiratory rate 18, SpO2 95% on room air. General: He is awake, alert, oriented. Psychiatric: He is appropriate and converses. HEENT: Normocephalic. Sclerae anicteric. Mucous membranes are moist. Oropharynx clear. He had an NG tube in place with green effluent. Neck: Supple without JVD. Chest: Normal expansion and excursion. Cardiovascular: Regular rate and rhythm. Pulmonary: Clear to auscultation bilaterally. Abdomen: Soft with mild bilateral lower quadrant tenderness to palpation. Well-healed surgical scar s evident. He has no rebound or guarding. No focal peritonitis. He is somewhat tympanic consistent with gas and the GI tract is evident. The patient is smiling throughout the examination and did not have any significant pain during our examination. Extremities: No clubbing, cyanosis, or edema. Skin: Warm and dry. Laboratory Data: Revealed a white blood cell count of 8.2, hemoglobin 10.3, hematocrit 50.4, platele t count is 146, neutrophils are 84%. His sodium is 138, potassium 3.8, chloride 100, carbon dioxide 29, BUN 22, creatinine 1.7, glucose 154, calcium 9.4. His total bilirubin is 0.8, direct component 0 .2, AST 27, ALT 41, alkaline phosphatase 89. His lipase is 151. His UA was essentially negative wit h the exception of trace blood and 1+ ketones and protein. He had a CT scan performed of the abdomen and pelvis, which was officially read as moderate mechanical small bowel obstruction is present. Mu ltiple dilated small bowel loops are seen in the left mid abdomen and lower abdomen compatible with m oderate mechanical small bowel obstruction. Anterior hernia mesh is present. Appendix is normal. N o evidence of significant lymphadenopathy. Small hiatal hernia, fatty liver. Assessment And Plan: This is an 84-year-old male, who comes in with a partial small bowel obstructio n. 1.IV fluid hydration. 2.NG tube decompression. 3.Serial abdominal exams. 4.Continue medical management per Dr. Parikh. I have explained the risks, benefits, and alternatives of operative versus nonoperative management. We opted for nonoperative measures at this point. I wi ll perform serial exams. Should the patient's condition worsen, we have discussed the surgical optio ns including exploratory laparotomy and indicated procedures. The patient agrees to proceed as indicated. Thank you for this interesting consult. ORION/TYRON Voice ID: [id number] Report ID: [id number]
[2020-07-31] MEDS: HYDROMORPHONE HCL 0.5 MG/0.5 ML INJ IV PRN ×2 (16:51→22:59)
[2020-07-31] MEDS ORDERED: METOPROLOL TARTRATE 5 MG/5 ML INJ IV SCH (19:00)
[2020-07-31] MEDS: METOPROLOL TARTRATE 5 MG/5 ML INJ IV SCH (20:00)
[2020-08-01] MEDS: CEFOXITIN/SWI 1gm 1 GM/10 ML SYR IVP SCH ×4 (00:27→18:17)
[2020-08-01] MEDS: Ringers Lactate 1,000 ML IV SCH ×4 (00:58→22:56)
[2020-08-01] MEDS: METOPROLOL TARTRATE 5 MG/5 ML INJ IV SCH ×4 (01:48→20:00)
[2020-08-01] MEDS ORDERED: LORazepam 2 MG/ML VIAL IV ONE (02:52)
[2020-08-01 06:00] LABS: Absolute Lymphocytes (CBC) 1.1 K/uL (0.7-4.9); Basophils % 0.6 % (0-1.3); Hematocrit 44.7 % (39.6-49.0); Lymphocytes % 29.1 % (15.3-44.8); MPV 8.8 fL (7.6-11.3); RBC Red Blood Cell Count 4.72 M/uL (4.33-5.43)
[2020-08-01 06:08] LABS: Magnesium 2.6 mg/dL (1.8-2.4); Phosphorus 3.1 mg/dL (2.5-4.9); Potassium 3.9 mmol/L (3.5-5.1)
--- NOTE | 2020-08-01 08:39 | RAD REPORT ---
EXAM DESCRIPTION: RAD - Abdomen W Erect - 08/01/2020 8:21 am CLINICAL HISTORY: SBO Small-bowel obstruction, abdominal pain COMPARISON: Abdomen Pelvis W Contrast dated 07/30/2020 TECHNIQUE: Supine and upright views of the abdomen were obtained. FINDINGS: Multiple dilated small bowel loops with air-fluid levels are present in a pattern not karolina rly different from July 30 imaging. No free air or pneumatosis have developed. Moderately large ri ght-side stool volume is present similar to comparison. NG tube is in the decompressed stomach. IMPRESSION: Small bowel dilation pattern similar to the July [address] study. No progression of the obstruction process. No free air or pneumatosis.
[2020-08-01] MEDS: ENOXAPARIN 30 MG/0.3 ML SQ SCH (09:28)
[2020-08-01 11:20] VITALS: O2SAT 92
[2020-08-01] MEDS ORDERED: POTASSIUM CL SA 10 MEQ TAB PO ONE (16:03)
[2020-08-01] MEDS: HYDROMORPHONE HCL 0.5 MG/0.5 ML INJ IV PRN (22:57)
[2020-08-02] MEDS: CEFOXITIN/SWI 1gm 1 GM/10 ML SYR IVP SCH ×2 (00:56→05:36)
[2020-08-02] MEDS: METOPROLOL TARTRATE 5 MG/5 ML INJ IV SCH ×2 (00:56→08:00)
[2020-08-02 05:58] LABS: Absolute Lymphocytes (CBC) 1.3 K/uL (0.7-4.9); Basophils % 0.7 % (0-1.3); Hematocrit 43.4 % (39.6-49.0); Lymphocytes % 31.8 % (15.3-44.8); MPV 8.4 fL (7.6-11.3)
[2020-08-02 06:21] LABS: Albumin 2.9 g/dL (3.4-5.0); Bilirubin Total 1.1 mg/dL (0.2-1.0); Magnesium 2.6 mg/dL (1.8-2.4); Phosphorus 2.8 mg/dL (2.5-4.9); Potassium 3.7 mmol/L (3.5-5.1); Protein, Total 6.3 g/dL (6.4-8.2)
--- NOTE | 2020-08-02 07:23 | RAD REPORT ---
EXAM DESCRIPTION: RAD - Abdomen W Erect - 08/02/2020 7:08 am CLINICAL HISTORY: Abdominal pain FINDINGS: Small bowel loops have diminished in caliber and only mildly enlarged. This is an improvem ent in small bowel obstruction Free air is not seen beneath the diaphragm NG tube has its tip 4.5 centimeters from the GE junction
[2020-08-02] MEDS ORDERED: POTASSIUM CL SA 10 MEQ TAB PO ONE (07:53)
[2020-08-02] MEDS: ENOXAPARIN 30 MG/0.3 ML SQ SCH (10:53)
[2020-08-02 12:46] VITALS: BP 141/71; TEMP 98
--- NOTE | 2020-08-02 15:50 | P.DS ---
Discharge Date: 08/02/20 Disposition: ROUTINE DISCHARGE Discharge Condition: GOOD Reason for Admission: Small-bowel obstruction - Problems (1) Small bowel obstruction Status: Acute (2) History of colon cancer Status: Acute (3) History of partial colectomy Status: Acute Brief History of Present Illness: Patient is a 84-year-old gentleman with a history of colon cancer status post partial colon resection who came into the hospital with abdominal pain. He had intractable nausea and vomiting on 2 separate occasions and his symptoms gradually worsened. He was noting some abdominal distension so he came to the emergency room to see if anything it happened to is prior colon resection. In the ER they did a CT scan which revealed a small-bowel obstruction. Patient was admitted to the hospital for further evaluation. Patient will get General surgery consultation. Will keep NG tube to suction. IV antibiotics and IV hydration. Hospital Course: Patient is doing well at this time. Continue with current plan of care. DC'd NG- tube and patient is tolerating diet. Anticipate discharge home with outpatient follow with surgery. Vital Signs/Physical Exam: Temp Pulse Resp BP Pulse Ox 98 F 61 18 141/71 H 94 08/02/20 12:00 08/02/20 12:00 08/02/20 12:00 08/02/20 12:00 08/02/20 12:00 General: Alert, In no apparent distress, Oriented x3 Laboratory Data at Discharge: WBC 4.10 K/uL (4.3-10.9) L 08/02/20 05:46 Hgb 14.6 g/dL (13.6-17.9) 08/02/20 05:46 Hct 43.4 % (39.6-49.0) 08/02/20 05:46 Plt Count 108 K/uL (152-406) L 08/02/20 05:46 PT 12.0 SECONDS (9.5-12.5) 07/31/20 04:09 INR 1.02 07/31/20 04:09 APTT 26.6 SECONDS (24.3-36.9) 07/31/20 04:09 Sodium 143 mmol/L (136-145) 08/02/20 05:46 Potassium 3.7 mmol/L (3.5-5.1) 08/02/20 05:46 BUN 18 mg/dL (7-18) 08/02/20 05:46 Creatinine 1.62 mg/dL (0.55-1.3) H 08/02/20 05:46 Glucose 91 mg/dL (74-106) 08/02/20 05:46 Phosphorus 2.8 mg/dL (2.5-4.9) 08/02/20 05:46 Magnesium 2.6 mg/dL (1.8-2.4) H 08/02/20 05:46 Total Bilirubin 1.1 mg/dL (0.2-1.0) H 08/02/20 05:46 AST 19 U/L (15-37) 08/02/20 05:46 ALT 27 U/L (12-78) 08/02/20 05:46 Alkaline Phosphatase 75 U/L (45-117) 08/02/20 05:46 Lipase 93 U/L (73-393) 07/31/20 04:09 Home Medications: Bimatoprost [Lumigan] 1 drop EACH EYE BEDTIME 07/30/20 Brimonidine Tartrate/Timolol [Combigan 0.2%-0.5% Eye Drops] 1 drop RIGHT EYE BID 07/30/20 Pravastatin Sodium 40 mg PO BEDTIME 07/30/20 Ramipril [Altace] 20 mg PO BEDTIME 07/30/20 Patient Discharge Instructions: OK TO DC IV AND DC HOME. FOLLOW-UP WITH PRIMARY CARE PROVIDER IN 1-2 WEEKS. FOLLOW-UP WITH GI IN 1-2 WEEKS. RETURN TO THE ER IF symptoms worsen. CALL or TEXT DR. MANRIQUE AT [phone] IF ANY QUESTIONS REGARDING HOSPITAL STAY. PLEASE CALL THE FLOOR AT [phone] IF ANY MEDICATION OR NURSING QUESTIONS. Diet: AHA Activity: Fall precautions Followup: BROOKLYN BUCHANAN [Primary Care Provider] - Time spent managing pt's care (in minutes): 35
[2020-08-02] MEDS ORDERED: CEFOXITIN/SWI 1gm 1 GM/10 ML SYR IVP SCH (17:00)
--- NOTE | 2020-08-08 00:30 | P.PN ---
Subjective Date of Service: 07/31/20 Subjective: No new changes, No C/O voiced, Improving Review of Systems 10-point ROS is otherwise unremarkable Physical Examination - Vital Signs Temperature: 98 F Blood Pressure: 141/71 Pulse: 61 Respirations: 18 Pulse Ox (%): 94 - Physical Exam General: Alert, In no apparent distress, Oriented x3 HEENT: Other (NG tube in place ) Respiratory: Clear to auscultation bilaterally, Normal air movement Cardiovascular: Regular rate/rhythm, Normal S1 S2, No murmurs Gastrointestinal: Normal bowel sounds, Soft and benign, Non-distended, No tenderness Musculoskeletal: No clubbing, No swelling, No tenderness Neurological: Normal strength at 5/5 x4 extr, Sensation intact, Cranial nerves 3-12 intact Lymphatics: No axilla or inguinal lymphadenopathy - Studies Medications List Reviewed: Yes Assessment & Plan - Problems (Diagnosis) (1) Small bowel obstruction Status: Acute (2) History of colon cancer Status: Acute (3) History of partial colectomy Status: Acute - Plan Continue with plan of care as mentioned below 1. Continue with IV hydration 2. Continue with IV antibiotics 3. Continue with pain control 4. NPO and NG tube will be clamped in a.m. 5. General surgery consultation appreciated 6. Monitor labs closely 7. GI and DVT prophylaxis Discharge Plan: Home Plan to discharge in: Greater than 2 days - Advance Directives Does patient have a Living Will: No Does patient have a Durable POA for Healthcare: No - Code Status/Comfort Care Code Status: Full Code Critical Care: No Time Spent Managing PTS Care (In Minutes): 35
--- NOTE | 2020-08-08 00:33 | P.PN ---
Subjective Date of Service: 08/01/20 Patient is doing well with no new complaints. Clamped his NG tube. Anticipate removing it and discharged in the morning. Review of Systems 10-point ROS is otherwise unremarkable Physical Examination - Vital Signs Temperature: 98 F Blood Pressure: 141/71 Pulse: 61 Respirations: 18 Pulse Ox (%): 94 - Physical Exam General: Alert, In no apparent distress, Oriented x3 Respiratory: Clear to auscultation bilaterally, Normal air movement Cardiovascular: Regular rate/rhythm, Normal S1 S2, No murmurs Gastrointestinal: Normal bowel sounds, Soft and benign, Non-distended, No tenderness, No rebound, No guarding Musculoskeletal: No clubbing, No swelling, No tenderness Neurological: Sensation intact, Cranial nerves 3-12 intact - Studies Medications List Reviewed: Yes Assessment & Plan - Problems (Diagnosis) (1) Small bowel obstruction Status: Acute (2) History of colon cancer Status: Acute (3) History of partial colectomy Status: Acute - Plan Continue with plan of care as mentioned below 1. Continue with IV hydration 2. Continue with IV antibiotics 3. Continue with pain control 4. Clamp the NG tube and remove it in the morning. 5. General surgery consultation appreciated; anticipate discharge home in the morning 6. Monitor labs closely 7. GI and DVT prophylaxis Discharge Plan: Home Plan to discharge in: 48 Hours - Advance Directives Does patient have a Living Will: No Does patient have a Durable POA for Healthcare: No - Code Status/Comfort Care Code Status: Full Code Critical Care: No Time Spent Managing PTS Care (In Minutes): 35
== END 2020-08-02 13:09 | disposition home or self-care (01) | DRG 390 ==
LOC: ER 07:07 → 2ND 14:52
PROVIDERS: ADMIT Hospitalist; ATTEND Hospitalist
DX: K56.600 Partial intestinal obstruction, unspecified as to cause (principal); E78.5 Hyperlipidemia, unspecified; I10 Essential (primary) hypertension; Z85.038 Personal history of other malignant neoplasm of large intestine; Z79.899 Other long term (current) drug therapy; Z90.49 Acquired absence of other specified parts of digestive tract; Z96.641 Presence of right artificial hip joint; Z20.822 Contact with and (suspected) exposure to COVID-19
CPT/HCPCS: 36415; 74019; 74177; 80048; 80053; 80076; 81003; 81015; 83690; 83735; 84100; 85025; 85610; 85730; 93005; 96361; 96365; 96375; 97116; 97161; 99285; J1170; J1650; J2175; J2405; J2543; J3480; J7040; J7120; Q9967; U0003